=== PATIENT | male | born 1990 | race Two or more races ===

== ENCOUNTER 2024-02-17 13:20 | Emergency (ER) | payer SELFPAY ==
--- NOTE | 2024-02-17 13:24 | ED.GENADULT ---
HPI - General Adult General Chief complaint: General Medical Stated complaint: std test Time Seen by Provider: 02/17/24 13:48 Source: patient and RN notes reviewed Mode of arrival: ambulatory Limitations: no limitations History of Present Illness ED Provider: Aye Bardales PA-C HPI narrative: This is a 34-year-old male who presents emergency department for STI check. He states that he is feeling well. He denies any known exposure. Moving back to [place] and would like to be screened. He has no current symptoms. No dysuria, hematuria, urinary frequency or urgency. No known exposure to any STIs. No penile discharge or rashes. No pain. No other complaints or concerns at this time. MD complaint: STI screening Onset (ago): day(s) Radiation: non-radiation Quality: aching Pain Consistency: constant Relieving factors: none Exacerbating factors: none Associated symptoms: denies other symptoms Treatments prior to arrival: none Related Data Allergies Allergy/AdvReac Type Severity Reaction Status Date / Time SEAFOOD Allergy Unknown RASH Uncoded 02/17/24 13:28 Review of Systems Review of Systems: Yes all other systems are reviewed and are negative [facility] Past Medical History Attestation statement: The following information was validated with the patient. Social History Social History Advance Directives: No Advance Directives Information Provided: No Physical Exam ED Vital Signs: Vital Signs - 24 hr 02/17/24 13:25 02/17/24 14:14 Temperature 99.0 F 99.0 F Pulse Rate 79 79 Respiratory Rate 16 16 Blood Pressure 125/58 L 125/58 L Pulse Oximetry 98 98 Oxygen Delivery Method Room Air Room Air BMI result Body Mass Index 26.4 Const Other: General: Awake, alert, and oriented X3. No acute distress. HEENT: Normal inspection CVS: Normal heart rate and rhythm. Pulses normal. Respiratory: No respiratory distress Skin: Warm, dry, no rashes noted to exposed skin. Normal skin color. Normal skin turgor. Extremities: Normal to inspection Neuro: Oriented X 3. No motor deficit. No sensory deficit. Course Course Course Narrative: This is an RME: Additional HPI, ROS, PE not included below will be deferred to primary provider. RME assessment and note performed by: Aye Bardales PA-C This is a 75-urov-war-male who presents to the ER for STD check. Pt is asymptomatic. Plan: Medical Decision Making Medical Decision Making [facility] Narrative: This is a 34-year-old male who presents emergency department for STI check. On arrival, vital signs within normal limits. He is speaking full sentences under no acute distress. He has no current complaints. Looking for STI screening. I advised patient that we routinely do not do these in the emergency room and he needs to follow-up with [facility]. Plan: GC chlamydia testing Differential Diagnosis Differential Diagnoses: The differential diagnosis associated with the presentation includes STI screening, STI exposure, gonorrhea, chlamydia Lab Data [facility] Lab Attestation statement: I reviewed the patient's lab results. Labs: Lab Results 02/17/24 Range/Units 13:52 Chlam trachomat DNA PCR NOT DETECTED (Not Detect.) N.gonorrhoeae DNA (PCR) NOT DETECTED (Not Detect.) Discharge Plan Discharge Clinical Impression: Screen for STD (sexually transmitted disease) Patient Disposition: Home, Self-Care Instructions: Safe Sex Practices (ED) Additional Instructions: You were seen in the emergency department for STI screening. We are only able to test you for gonorrhea and chlamydia. Utilize your patient portal if your wondering what your results are. You may also call us. We call you with any positive results. Please practice safe sex. [facility] where you can be tested for multiple sexually transmitted infections. Follow-up with next week so you can get tested for all the other STIs. Call [facility] on Monday to set up an appointment. They open at 11AM on monday. If any new or worsening symptoms occur including but not limited to chest pain, shortness of breath, please seek emergent care. [address] [phone] Interventions: ED Discharge Assessment Last Done: 02/17/24 14:14 Discharge Date/Time: 02/17/24 14:15 Print Language: Singaporean
[2024-02-17 13:25] VITALS: BP 125/58; PULSE 79; RESP 16; TEMP 37.2; O2SAT 98; BMI 26.4
[2024-02-17 14:14] VITALS: BP 125/58; PULSE 79; RESP 16; TEMP 37.2; O2SAT 98
[2024-02-17 15:30] LABS: CT PCR NOT DETECTED (Not Detect.); NG PCR NOT DETECTED (Not Detect.)
== END 2024-02-17 14:15 | disposition home or self-care (01) ==
PROVIDERS: Physician Assistant Medical; Emergency Provider Emergency Medicine
DX: Z20.2 Contact with and (suspected) exposure to infections with a predominantly sexual mode of transmission (principal)
CPT/HCPCS: 87491; 87591; 99282; 99283